=== PATIENT | female | born 1930 | race Caucasian/White ===

== ENCOUNTER 2017-09-05 05:11 | Emergency (ER) | payer MEDICARE, BC ==
[2017-09-05 05:31] VITALS: BP 164/68
[2017-09-05] MEDS ORDERED: Oxymetazoline 0.05% Nasal Spray 15 ML Bottle ONE (05:33)
[2017-09-05] MEDS ORDERED: Oxymetazoline 0.05% Nasal Spray 15 ML Bottle NAS ONE (05:35)
--- NOTE | 2017-09-05 05:52 | EDM.PDOC ---
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 Pt called EMS when she was unable to control the bleeding. Pt denies use of blood thinners. Pt states the bleeding was from the right nare. EMS put a nose clamp on the patient and bleeding has been controlled for the last 30 minutes. Pt denies any headache or chest pain. Pt's BP 160/60's. Onset: Sudden Onset Date: 09/05/17 Onset Time: 05:00 Location: Reports: Face Severity: Mild Improves with: Reports: None Worsens with: Reports: None Associated Symptoms: Reports: No Other Symptoms - Related Data Allergies Allergy/AdvReac Type Severity Reaction Status Date / Time No Known Allergies Allergy Verified 09/05/17 05:16 Home Meds: Home Meds Aspirin [Halfprin] 81 mg PO DAILY 07/08/15 [History] Bromocriptine [Parlodel] 2.5 mg PO DAILY 07/08/15 [History] Calcium Carb/D3/Mag AA Chelate [Coral Calcium Capsule] 1 tab PO BID 07/08/15 [ History] Cholecalciferol (Vitamin D3) [Vitamin D3] 2,000 unit PO DAILY 07/08/15 [History] Denosumab [Xgeva] 120 mg SUBCUT ASDIRECTED 07/08/15 [History] Docusate Sodium [Colace] 100 mg PO BID 07/08/15 [History] Flaxseed Oil [Flax Oil] 1,000 mg PO DAILY 07/08/15 [History] Fulvestrant [Faslodex] 500 mg IM ASDIRECTED 07/08/15 [History] Letrozole 2.5 mg PO DAILY 07/08/15 [History] Levothyroxine 112 mcg PO DAILY 07/08/15 [History] Levothyroxine [Synthroid] 100 mcg PO DAILY 07/08/15 [History] Multivit-Min/FA/Lycopene/Lut [Centrum Silver Tablet] 1 tab PO DAILY 07/08/15 [ History] [place]-3 Fatty Acids [Fish Oil] 1 cap PO DAILY 07/08/15 [History] Potassium Chloride [Klor-Con 10] 10 meq PO DAILY 07/08/15 [History] Celecoxib [CeleBREX] 100 mg PO BID #60 cap 07/10/15 [Rx] traMADol [Ultram] 50 mg PO Q8H PRN #30 tablet 07/10/15 [Rx] Social & Family History - Tobacco Use Smoking Status *Q: Never Smoker Second Hand Smoke Exposure: No - Recreational Drug Use Recreational Drug Use: No ED ROS ENT - Review of Systems Review Of Systems: See Below Constitutional: Reports: No Symptoms HEENT: Reports: Nosebleed Respiratory: Reports: No Symptoms Cardiovascular: Reports: No Symptoms Endocrine: Reports: No Symptoms GI/Abdominal: Reports: No Symptoms : Reports: No Symptoms Musculoskeletal: Reports: No Symptoms Skin: Reports: No Symptoms Neurological: Reports: No Symptoms Psychiatric: Reports: No Symptoms Hematologic/Lymphatic: Reports: No Symptoms Immunologic: Reports: No Symptoms ED EXAM, ENT - Physical Exam Exam: See Below Exam Limited By: No Limitations General Appearance: Alert, WD/WN, No Apparent Distress Nose: Dried Blood. No: Nasal Tenderness, Septal Hematoma, Active Bleeding Mouth/Throat: Normal Inspection, Normal Gums, Normal Lips, Normal Oropharynx, Normal Teeth Head: Atraumatic, Normocephalic Neck: Normal Inspection, Supple, Non-Tender, Full Range of Motion Respiratory/Chest: No Respiratory Distress, Lungs Clear, Normal Breath Sounds, No Accessory Muscle Use, Chest Non-Tender Cardiovascular: Normal Peripheral Pulses, Regular Rate, Rhythm, No Edema, No Gallop, No JVD, No Murmur, No Rub GI/Abdominal: Normal Bowel Sounds, Soft, Non-Tender, No Organomegaly, No Distention, No Abnormal Bruit, No Mass Back: Normal Inspection, Full Range of Motion Extremities: Normal Inspection, Normal Range of Motion, Non-Tender, No Pedal Edema, Normal Capillary Refill Neurological: Alert, Oriented, CN II-XII Intact, Normal Cognition, Normal Gait, Normal Reflexes, No Motor/Sensory Deficits Psychiatric: Normal Affect, Normal Mood Skin: Warm, Dry, Intact, Normal Color, No Rash Lymphatic: No Adenopathy ED ENT PROCEDURES - Epistaxis Procedure Indication: Epistaxis, Controlled Recent anticoagulants/antiplatlets: No Uncontrolled HTN: No Recent septal/nasal surgery: No Site of bleeding: Right Nare Clearing of clots: Patient Blew Nose Topical Meds: Phenylephrine Ice pack to area: No Complications: No Course - Vital Signs Last Recorded V/S: Last Vital Signs Temp 36.4 C 09/05/17 05:20 Pulse 68 09/05/17 05:20 Resp 18 09/05/17 05:20 BP 164/68 H 09/05/17 05:31 Pulse Ox 96 09/05/17 05:20 - Orders/Labs/Meds Meds: Medications Discontinued Medications Generic Name Dose Route Start Last Admin Trade Name Ai PRN Reason Stop Dose Admin Oxymetazoline HCl Confirm 09/05/17 05:33 Afrin Original 0.05% Nasal [place] Administered 09/05/17 05:34 Dose 15 ml .ROUTE .STK-MED ONE Departure - Departure Time of Disposition: 05:54 Disposition: Home, Self-Care 01 Condition: Good Clinical Impression: Epistaxis - Discharge Information Instructions: Nosebleed Referrals: Luz Aviles MD [Primary Care Provider] - - Assessment/Plan Assessment:: 1. epistaxsis to right nare- controlled Plan: 1. discharge home 2. Afrin NS 2 sprays in each nostril bid x 3 days 3. follow up with PCP for further evaluation and treatment as needed 4. return to ER for worsening symptoms
== END 2017-09-05 06:25 | disposition home or self-care (01) ==
LOC: KA.ED 05:11
DX: R04.0 Epistaxis (principal); Z79.899 Other long term (current) drug therapy; Z79.82 Long term (current) use of aspirin
CPT/HCPCS: 99283; A9270

== ENCOUNTER 2018-11-08 01:07 | Emergency (ER) | payer MEDICARE, BC ==
[2018-11-08] MEDS ORDERED: Lidocaine 1% 20 ML MDV ONE (01:40)
[2018-11-08] MEDS ORDERED: Lidocaine 1% 20 ML MDV INJECT ONE (01:48)
--- NOTE | 2018-11-08 01:54 | EDM.PDOC ---
ED HPI GENERAL MEDICAL PROBLEM - General Chief Complaint: General Stated Complaint: fall Time Seen by Provider: 11/08/18 01:48 Source of Information: Reports: Patient, Family (\) History Limitations: Reports: No Limitations - History of Present Illness INITIAL COMMENTS - FREE TEXT/NARRATIVE: Patient is a 88-year-old female who presents to the emergency department via EMS secondary to a fall that occurred just prior to arrival. Patient states that she was going to the restroom lost her footing, fell backwards and struck the back of her head. Noticed some bleeding, so contacted EMS. She states she did not lose consciousness, neck does not hurt, does not have headache, denies blurred vision, nausea or vomiting. at bedside. Onset: Today, Sudden Onset Date: 11/08/18 Duration: Minutes: Location: Reports: Head Quality: Reports: Other (Denies pain) Severity: Mild Improves with: Reports: None Worsens with: Reports: None Context: Reports: Trauma (Fall from standing position) Associated Symptoms: Reports: No Other Symptoms - Related Data Allergies Allergy/AdvReac Type Severity Reaction Status Date / Time No Known Drug Allergies Allergy Other Verified 11/08/18 01:17 pepper (genus Capsicum) Allergy Sneezing Verified 11/08/18 01:17 [pepper] *Environment Allergies Allergy Other Uncoded 08/13/18 09:46 Home Meds: Home Meds Aspirin [Halfprin] 81 mg PO DAILY 07/08/15 [History] Bromocriptine [Parlodel] 2.5 mg PO DAILY 07/08/15 [History] Cholecalciferol (Vitamin D3) [Vitamin D3] 2,000 unit PO DAILY 07/08/15 [History] Docusate Sodium [Colace] 100 mg PO BID PRN 07/08/15 [History] Letrozole 2.5 mg PO DAILY 07/08/15 [History] Multivit-Min/FA/Lycopene/Lut [Centrum Silver Tablet] 1 tab PO DAILY 07/08/15 [ History] Potassium Chloride [Klor-Con 10] 10 meq PO DAILY 07/08/15 [History] Citalopram [Celexa] 20 mg PO DAILY 09/05/17 [History] Furosemide 20 mg PO DAILY 09/05/17 [History] Palbociclib [Ibrance] 75 mg PO ASDIRECTED 09/05/17 [History] Sodium Chloride/Aloe Vera [[place] Saline Nasal Gel [place]] 2 spray NS ASDIRECTED [History] Levothyroxine [Synthroid] 88 mcg PO DAILY #30 tab 04/15/18 [Rx] ARIPiprazole [Abilify] 5 mg PO DAILY 07/12/18 [History] Denosumab [Xgeva] 120 mg SUBCUT ASDIRECTED 07/12/18 [History] L.acidoph,Paracasei, B.lactis [Probiotic] 1 cap PO DAILY 07/12/18 [History] Past Medical History HEENT History: Reports: Cataract, Epistaxis Cardiovascular History: Reports: Heart Failure, Hypertension Respiratory History: Reports: Pneumonia, Recurrent, Other (See Below) Gastrointestinal History: Reports: None Genitourinary History: Reports: Chronic Renal Insuffiency, Renal Calculus [employer]HE[employer] BU[employer]DER History: Reports: Musculoskeletal History: Reports: None Neurological History: Reports: None, Other (See Below) Psychiatric History: Reports: Anxiety, Depression Endocrine/Metabolic History: Reports: Hypothyroidism Hematologic History: Reports: None Immunologic History: Reports: None Oncologic (Cancer) History: Reports: Breast, Metastatic, Other (See Below) 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, spine,neck Dermatologic History: Reports: None - Infectious Disease History Infectious Disease History: Reports: Chicken Pox, Measles, Mumps - Past Surgical History HEENT Surgical History: Reports: Cataract Surgery Cardiovascular Surgical History: Reports: None Respiratory Surgical History: Reports: None GI Surgical History: Reports: None Female Surgical History: Reports: Breast Biopsy, Mastectomy Neurological Surgical History: Reports: None Musculoskeletal Surgical History: Reports: None Oncologic Surgical History: Reports: Biopsy of Breast, Mastectomy Dermatological Surgical History: Reports: None - Past Imaging History Past Imaging History: Reports: Bone Scan, CAT Scan, Xray Social & Family History - Family History Family Medical History: Noncontributory - Caffeine Use Caffeine Use: Reports: Coffee ED ROS GENERAL - Review of Systems Review Of Systems: ROS reveals no pertinent complaints other than HPI. Constitutional: Reports: No Symptoms HEENT: Reports: Other (Posterior scalp injury with laceration) Respiratory: Reports: No Symptoms Cardiovascular: Reports: No Symptoms Endocrine: Reports: No Symptoms GI/Abdominal: Reports: No Symptoms : Reports: No Symptoms Musculoskeletal: Reports: No Symptoms Skin: Reports: Wound (Posterior Scalp laceration) Neurological: Reports: No Symptoms Psychiatric: Reports: No Symptoms Hematologic/Lymphatic: Reports: No Symptoms Immunologic: Reports: No Symptoms ED EXAM, GENERAL - Physical Exam Exam: See Below Exam Limited By: No Limitations General Appearance: Alert, WD/WN, No Apparent Distress Eye Exam: Bilateral Eye: Normal Inspection Ears: Normal External Exam, Normal Canal Nose: Normal Inspection, No Blood Throat/Mouth: Normal Inspection, Normal Oropharynx, No Airway Compromise Head: Other (2 cm laceration to superior posterior scalp. Minimal edema without depression.). No: Facial Swelling, Facial Tenderness Neck: Normal Inspection, Supple, Non-Tender, Full Range of Motion. No: Tender Midline Respiratory/Chest: No Respiratory Distress, Lungs Clear, Normal Breath Sounds Back Exam: Normal Inspection Extremities: Normal Inspection Neurological: Alert, Oriented, CN II-XII Intact, Normal Cognition Psychiatric: Normal Affect, Normal Mood Skin Exam: Warm, Dry, Normal Color, No Rash ED GENERAL MEDICAL PROCEDURES - Laceration/Wound Repair Upper Posterior Head Appearance: Subcutaneous Anesthetic Type: Local Local Anesthesia - Lidocaine (Xylocaine): 1% Plain Local Anesthetic Volume: 3cc Skin Prep: Providone-Iodine (Betadine) Closed with: Tk Tetanus Status Addressed: Yes Complications: No Progress/Comments: Tolerated procedure well Course - Orders/Labs/Meds Orders: Active Orders 24 hr Category Date Time Status Lidocaine 1% [Xylocaine 1%] Med 11/08/18 01:48 Once 20 ml INJECT ONETIME ONE Meds: Medications Discontinued Medications Generic Name Dose Route Start Last Admin Trade Name Ai PRN Reason Stop Dose Admin Lidocaine HCl Confirm 11/08/18 01:40 Xylocaine 1% Administered 11/08/18 01:41 Dose 20 ml .ROUTE .STK-MED ONE - Re-Assessments/Exams Free Text/Narrative Re-Assessment/Exam: 11/08/18 01:56 Patient afebrile, vital signs stable, tolerated staple procedure well. at bedside. Patient will follow-up tomorrow at the clinic for recheck and have tk removed in 10 days. Departure - Departure Time of Disposition: 01:57 Disposition: Home, Self-Care 01 Condition: Good Clinical Impression: Head injury Qualifiers: Encounter type: initial encounter Qualified Code(s): S09.90XA - Unspecified injury of head, initial encounter Scalp laceration Qualifiers: Encounter type: initial encounter Qualified Code(s): S01.01XA - Laceration without foreign body of scalp, initial encounter - Discharge Information Instructions: Stitches, Reese, or Adhesive Wound Closure, [id number], Head Injury, Adult, [id number] Additional Instructions: Follow-up with PCP tomorrow. Return to emergency department sooner if symptoms continue or worsen. Tk to be removed in 10 days. - My Orders Last 24 Hours: My Active Orders 11/08/18 01:48 Lidocaine 1% [Xylocaine 1%] 20 ml INJECT ONETIME ONE - Assessment/Plan Last 24 Hours: My Active Orders 11/08/18 01:48 Lidocaine 1% [Xylocaine 1%] 20 ml INJECT ONETIME ONE Assessment:: Scalp laceration Plan: Follow-up with PCP
[2018-11-08] MEDS ORDERED: Diphtheria,Pertussis(Acell),Tetanus Vaccine 0.5 ML SDV IM ONE (01:55)
[2018-11-08 03:04] VITALS: BP 156/65
== END 2018-11-08 02:25 | disposition home or self-care (01) ==
LOC: SUPCPDRO 01:07 → KA.ED 01:07
DX: S01.01XA Laceration without foreign body of scalp, initial encounter (principal); S09.90XA Unspecified injury of head, initial encounter; Z23 Encounter for immunization; I11.0 Hypertensive heart disease with heart failure; I50.9 Heart failure, unspecified; F41.9 Anxiety disorder, unspecified; F32.9 Major depressive disorder, single episode, unspecified; E03.9 Hypothyroidism, unspecified; Z91.018 Allergy to other foods; Z79.82 Long term (current) use of aspirin; Z79.899 Other long term (current) drug therapy; W19.XXXA Unspecified fall, initial encounter
CPT/HCPCS: 12001; 90471; 90715; 99283